=== PATIENT | male | born 1975 | race Caucasian/White ===

== ENCOUNTER 2021-04-07 04:25 | Inpatient (IN) | payer OTHER, SELFPAY ==
[2021-04-07] VITALS (10 sets, daily range): BP systolic 106–168; BP diastolic 65–94; PULSE 75–108; RESP 16–20; TEMP 36.6–38.8; O2SAT 94–100; BMI 51.7
--- NOTE | ~2021-04-07 | CT_ITS ---
EXAMINATION: CT abdomen pelvis w con DATE: 04/07/2021 06:20 INDICATION: Lower abdominal pain, fever, nausea TECHNIQUE: Computed tomography (CT) of the abdomen and pelvis was performed with 100 mL Omnipaque-350 intravenous contrast. Automated exposure control and iterative reconstruction technique were employe d. The dose-length product was 1618.35 mGy-cm. COMPARISON: None FINDINGS: There are peripheral wedge shaped regions with combination of groundglass opacity and more dense cons olidation at the posterior basilar aspect of both lower lobes. Appearance is suspicious for pulmonary infarcts at the phase of contrast is insufficient to diagnostically assess for pulmonary emboli. No pleural effusion. Heart size is normal. Atherosclerotic coronary artery calcific location. No pericar dial effusion. Diffuse hepatic steatosis with focal sparing at the gallbladder fossa. Gallbladder, sp galina, pancreas, bilateral adrenal glands and kidneys are normal. Very small gas containing duodenal d iverticulum arising from the second portion of the duodenum. Bowels are otherwise unremarkable with n o wall thickening or obstruction. Normal appendix. Diffuse smooth bladder wall thickening. No free in traperitoneal gas or fluid. No pathologically enlarged abdominal or pelvic lymphadenopathy. Small fat -containing umbilical hernia. There are bridging osteophytes at multiple levels in the lower thoracic spine, consistent with diffuse idiopathic skeletal hyperostosis (DISH). IMPRESSION: 1. Peripheral wedge-shaped opacities in the bilateral lower lobes with appearance suspicious for pulm onary infarcts. Contrast opacification of the pulmonary arteries insufficient to assess for pulmonary emboli. Differential would include pneumonia, aspiration or organizing pneumonia. 2. Diffuse hepatic steatosis. 3. Diffuse smooth bladder wall thickening which could be seen with chronic outlet obstruction, neurog enic bladder or cystitis either acute or chronic. Correlate with urinalysis. Reviewed, dictated and finalized at location A. IMPRESSION: 1. Peripheral wedge-shaped opacities in the bilateral lower lobes with appearan ce suspicious for pulmonary infarcts. Contrast opacification of the pulmonary a rteries insufficient to assess for pulmonary emboli. Differential would include pneumonia, aspiration or organizing pneumonia. 2. Diffuse hepatic steatosis. 3. Diffuse smooth bladder wall thickening which could be seen with chronic outl et obstruction, neurogenic bladder or cystitis either acute or chronic. Correla te with urinalysis.
--- NOTE | ~2021-04-07 | CT_ITS ---
EXAMINATION: CTA chest PE protocol EXAM DATE: 04/08/2021 09:31 INDICATION: Shortness of breath. Cough. Fever. Right lower quadrant pain. Abnormal CT scan abdomen wi th basilar airspace disease and peripheral wedge-shaped appearance. Allergy to iodine, needed for med ication. TECHNIQUE: Spiral CTA of the chest (pulmonary arteries) was performed with 100 cc Omnipaque 350 intr avenous contrast injection. Images were acquired during the pulmonary arterial phase. Coronal maxi mum intensity projection 3D-reconstructions were created by the technologist on dedicated workstation . Axial, coronal and sagittal reformatted images were reviewed. The dose-length product (DLP) for t his examination was 1001.84 mGy-cm. The exposure was tailored according to patient size (auto mA ex posure control), and iterative reconstruction (ASIR) was used as additional dose reduction technique. Correlation is made to CT abdomen pelvis same date. FINDINGS: Pulmonary arteries are well opacified and without intraluminal filling defects. No thora cic aortic dissection. Bilateral posterior sulcal airspace disease, appearance consistent with pneum onia. Pulmonary arteries extending to this enhance normally. There are no pleural or pericardial eff usions. Tracheobronchial tree is patent. There is no mediastinal, hilar or axillary lymphadenopat hy. There is no pneumothorax. Heart normal in size. No evidence of coronary arterial calcificat ion. Steatosis small to moderate-sized bridging right anterolateral thoracic endplate osteophytes. There are no osteoblastic or osteolytic lesions identified. IMPRESSION: 1. Bilateral lower lobe posterior segmental pneumonia. 2. No pulmonary emboli. Reviewed, dictated and finalized at location A.
--- NOTE | ~2021-04-07 | XR_ITS ---
EXAMINATION: XR chest 1V portable DATE: 04/07/2021 05:00 INDICATION: Cough, fever, dizziness and nausea TECHNIQUE: frontal view of the chest was obtained. COMPARISON: CT dated 04/07/2021 FINDINGS: Subtle opacities at the lung bases most prominent at the medial left lung base better appreciated on subsequent CT. No pulmonary edema, pleural effusion or pneumothorax. The cardiomediastinal silhouette is normal. IMPRESSION: 1. Subtle opacities at the bilateral lung bases with differential based on appearance on subsequent C T including pulmonary infarct, pneumonia, aspiration or chronic organizing pneumonia. Reviewed, dictated and finalized at location A. IMPRESSION: 1. Subtle opacities at the bilateral lung bases with differential based on appe arance on subsequent CT including pulmonary infarct, pneumonia, aspiration or c hronic organizing pneumonia.
--- NOTE | ~2021-04-07 | US_ITS ---
EXAMINATION: US venous doppler [facility] DATE: 04/07/2021 15:32 INDICATION: Shortness of breath TECHNIQUE: Lawrence scale images without and with compression and Doppler images of the bilateral lower e xtremity veins were obtained. COMPARISON: None FINDINGS: The right common femoral vein, profunda femoral vein, femoral vein, popliteal vein, peroneal trunk, p osterior tibial veins, and greater saphenous vein are patent. The left common femoral vein, profunda femoral vein, femoral vein, popliteal vein, peroneal trunk, po sterior tibial veins, and greater saphenous vein are patent. IMPRESSION: 1. Patent bilateral lower extremity veins. No evidence of deep venous thrombosis. Reviewed, dictated and finalized at location A. IMPRESSION: 1. Patent bilateral lower extremity veins. No evidence of deep venous thrombosi s.
--- NOTE | 2021-04-07 04:46 | ECG_ITS ---
Measurements Intervals [place] Rate: 102 P: 47 DE: 140 QRS: -15 QRSD: 106 T: 42 QT: 321 QTc: 420 Interpretive Statements SINUS TACHYCARDIA BASELINE WANDER- I, AVL, AVF BORDERLINE ECG Electronically Signed On 04-07-2021 6:41:49 CDT by Johnnie Gunter D.O.
--- NOTE | 2021-04-07 04:48 | ED.FEVER ---
HPI - Fever General Chief Complaint: Fever Stated Complaint: fever, dizzy, nausea Time Seen by Provider: 04/07/21 04:35 Source: patient Mode of arrival: ambulatory Limitations: no limitations History of Present Illness HPI Narrative: This is a 46 year old Caucausian male with history of DM who presents for evaluation of fever. Patient developed fever of 103 F yesterday. He also reports associated headache, nausea, cough and shortness of breath. HE denies chest pain, vomiting, runny nose, sore throat or diarrhea. He is unvaccinated for COVID and he denies any sick contacts. He last took tylenol over 10 hours ago Related Data Allergies Allergy/AdvReac Type Severity Reaction Status Date / Time SEAFOOD Allergy Mild Hives Uncoded 04/07/21 04:38 Review of Systems Review of Systems: All systems reviewed & are unremarkable except as noted in HPI and below Constitutional: Constitutional: Reports chills and Reports fever(s) ENT: Reports dizziness, Denies nasal congestion and Denies sore throat Cardiovascular: Cardiovascular: Denies chest pain Respiratory: Respiratory: Reports cough and Reports dyspnea Gastrointestinal: Gastrointestinal: Reports abdominal pain, Denies diarrhea, Reports nausea and Denies vomiting Neurologic: Reports headache(s) [facility] Past Medical History Medical History (Updated 04/07/21 @ 07:42 by Natalee Reese MD) Diabetes mellitus Surgical History Surgical History (Updated 04/07/21 @ 04:49 by Natalee Reese MD) No pertinent past surgical history Social History Social History (Updated 04/07/21 @ 04:49 by Natalee Reese MD) Smoking status: Never smoker Exam Const: General: no acute distress and alert Nutritional Appearance: obese Orientation/consciousness: patient oriented x3 HENMT: Head: normocephalic and atraumatic Ears: TM's normal bilaterally Face and sinus: normal facial exam, sinuses nontender and face symmetric Mouth: Yes Normal oral and palatal mucosa present, Yes lip normal, Yes oropharynx normal and Yes moist mucous membranes Throat: posterior oropharynx normal, tonsils normal and uvula midline Eyes: Pupils: Equal, round and reactive pupils present EOM: EOMs intact bilaterally Resp: Effort & Inspection: normal respiratory effort and no retractions Auscultation: clear to auscultation bilaterally Cardio: Rate: regular rate Rhythm: regular rhythm Heart sounds: no murmurs GI: Inspection: distended GI Palp: Yes Soft to palpation, Yes Tenderness to palpation present (GI) (Diffuse worse on LLQ), No Guarding due to palpation present (GI) and No Rigid due to palpation Auscultation: normal bowel sounds Skin: General skin exam: normal color Rashes: no rashes Neuro: General: patient oriented x3, moves all extremities and CN's II-XI intact bilaterally Psych: Mental Status: mental status grossly normal Affect: normal affect Course Reevaluation(s) Reevaluation #1: I Discussed with patient with UTI possible pneumonia vs pulmonary infarct. Date: 04/07/21 Time: 07:40 Consultations Consultation #1: I discussed with Dr. Bonilla about patient with sepsis UTI with possible pulmonary infarct vs pneumonia vs PE. He request d dimer . and they will reassess patient. He accepts patient to [facility]. Date: 04/07/21 Time: 07:38 Vital Signs Vital signs: Vital Signs Temperature 101.7 F H 04/07/21 04:25 Pulse Rate 108 H 04/07/21 04:25 Respiratory Rate 18 04/07/21 04:25 Blood Pressure 168/94 H 04/07/21 04:25 Pulse Oximetry 97 04/07/21 04:25 Temperature 101.7 F H 04/07/21 04:25 Pulse Rate 99 04/07/21 05:36 Respiratory Rate 18 04/07/21 05:36 Blood Pressure 106/65 04/07/21 05:36 Pulse Oximetry 95 04/07/21 05:36 MDM - Fever Lab Data Attestation: I reviewed the patient's lab results. Result diagrams: 04/07/21 05:05 04/07/21 05:05 Labs: Lab Results 04/07/21 04/07/21 04/07/21 Range/Units 05:05 05:05 05:05 WBC
[2021-04-07 05:14] LABS: Basophils Percent Auto 0.4 % (0.2-1.2); Eosinophils Percent Auto 0.4 % (0-4.4); Hematocrit 41.5 % (42.0-52.0); Hemoglobin 14.3 g/dL (14.0-18.0); Immature Granulocyte Absolute 0.03 K/mm3 (0.00-0.031); Immature Granulocyte Percent A 0.4 % (0-0.5); Lymphocytes Absolute Auto 1.12 K/mm3 (0.9-3.2); Lymphocytes Percent Auto 16.2 % (18.3-44.2); Mean Corpuscular HGB Conc 34.5 g/dl (32-36); Mean Corpuscular Hemoglobin 30.8 pg (26-34); Mean Corpuscular Volume 89.2 fl (80-100); Mean Platelet Volume 9.7 fl (7.4-10.4); Monocytes Absolute Auto 0.7 K/mm3 (0.1-0.6); Monocytes Percent Auto 9.7 % (2.6-8.5); Neutrophils Percent Auto 72.9 % (45.5-73.1); Platelet Count Result 194 k/mm3 (150-375); Red Blood Count 4.65 M/mm3 (4.6-6.20); Red Cell Distribution Width 12.7 % (11.5-14.5); White Blood Count 6.9 K/mm3 (4.5-10.0)
[2021-04-07 05:24] LABS: INR 1.1; Prothrombin Time 13.6 Seconds (11.1-14.7)
[2021-04-07 05:25] LABS: Partial Thromboplastin Time 39.5 SECONDS (22.3-36.8)
[2021-04-07 05:26] LABS: Lactic Acid Reflex 1.1 mmol/L (0.7-2.1)
[2021-04-07] MEDS: ONDANSETRON INJ 4 MG/2 ML VIAL IV PUSH ×2 (05:32→17:20)
[2021-04-07 05:37] LABS: Troponin I < 0.012 ng/mL (0.000-0.034)
[2021-04-07 05:39] LABS: Alanine Aminotransferase 30 U/L (4-50); Albumin Level 4.9 g/dL (3.5-5.1); Alkaline Phosphatase 54 U/L (38-126); Anion Gap 13 mmol/L (8-16); Aspartate Amino Transferase 40 U/L (17-59); Bilirubin,Total 0.9 mg/dL (0.2-1.3); Blood Urea Nitrogen 16 mg/dL (9-20); Calcium 8.8 mg/dL (8.4-10.2); Carbon Dioxide 19 mmol/L (22-30); Chloride 98 mmol/L (98-107); Estimated CRCL calculation 151 ml/min; Estimated Glomerular Filt Rate > 60; Glucose 193 mg/dL (65-110); Lipase 14 U/L (23-300); Potassium 4.6 mmol/L (3.4-5.0); Sodium 130 mmol/L (137-145)
[2021-04-07 05:41] LABS: CRP 18.3 mg/dL (<1.0)
[2021-04-07] MEDS: SODIUM CHLORIDE 0.9% IV 1,000 ML 999 ML IV CONT (06:34)
[2021-04-07 07:08] LABS: Add Urine Microscopic? YES; Appearance Urine Cloudy (Clear); Bilirubin Urine Negative (Negative); Blood Urine 1+ (Negative); Color Urine Yellow (Yellow); Glucose Urine UA Negative (Negative); Ketones Urine Negative (Negative); Leukocyte Esterase Ur 3+ LEU/UL (Negative); Mucus Urine Rare /lpf; Nitrate Urine Positive (Negative); Protein Urine 2+ mg/dL (Negative); RBC Urine 21-50 /hpf (0-2); Urobilinogen Urine Negative mg/dL (<2.0); WBC Urine >75 /hpf
[2021-04-07 07:13] LABS: Specific Grav Ur 1.043 (1.001-1.035)
[2021-04-07 08:04] LABS: D Dimer 3.35 ug/mL (<0.48)
[2021-04-07] MEDS: ENOXAPARIN 120 MG/0.8 ML SYRINGE 160 MG SUB-Q (08:24)
--- NOTE | 2021-04-07 09:35 | PC.NURSE ---
attempted to call floor nurse, floor stated she will call back
--- NOTE | 2021-04-07 10:44 | ADMGEN ---
This patient, Jonathan Case, was admitted to [facility] Surg Room 303-01. Patient/family oriented to hospital policies and general routines including ID bracelet, bed and alarms, visiting hours, pain management, procedures, bathroom and other care routines, personal items, smoking policy, room service/diet, and visiting hours. Information on how to activate the Rapid Response Team has been discussed. Patient/Family are encouraged to report perceived risks to care and to ask questions if they do not understand what they are told or what they should do.
[2021-04-07 12:08] LABS: Glucose Point of Care 119 mg/dl (65-105)
[2021-04-07] MEDS: SODIUM CHLORIDE 0.9% IV 1,000 ML 125 ML IV CONT (12:24)
--- NOTE | 2021-04-07 14:59 | PM.IMHP ---
H&P: HPI History of Present Illness Date/Time: 04/07/21 14:59 this is a 46-year-old male patient who is on vaccinated for COVID 19. The patient has a history diabetes and hypertension. The patient presented to the emergency room for evaluation of a fever. The patient had a T-max of 103? yesterday. He also had a headache, nausea cough and shortness of breath. He denied any chest pain no nausea vomiting or diarrhea. The patient denies any sick contacts. He did take Tylenol over 10 hours ago. Chest x-ray was read as subtle opacities at the bilateral lung bases with differential based on appearance on subsequent CT involving pulmonary infarct, pneumonia aspiration or chronic organizing pneumonia. The patient was swabbed for COVID-19 and is pending PCR. Patient was given IV Tylenol, Zofran, IV fluids, azithromycin and Rocephin. The patient was started on subcu Lovenox therapeutic doses. However was thought that the patient was unable to get a CTA due to his seafood allergy. However I did call CT and they stated there was no correlation between seafood allergy and CT contrast and therefore the patient should be able to get a CT scan. The patient's D-dimers 3.35. Sodium is 130. Urinalysis was positive for UTI as well. Patient's temperature 38.6. Glucose 193. CRP 18.3 the patient is being admitted to observation status on the date of service of 04/07/2020 Chief Complaint: Fever and chills Review of Systems Review of Systems: All systems reviewed & are unremarkable except as noted in HPI and below Constitutional: Constitutional: Reports as per HPI and Reports no additional constitutional complaints Eyes: Eyes: Reports as per HPI and Reports no additional eye complaints ENT: Reports system reviewed and no additional complaints, except as documented and Reports Normal hearing present Cardiovascular: Cardiovascular: Reports no additional cardiovascular complaints Respiratory: Respiratory: Reports no additional respiratory complaints and Reports no additional respiratory complaints Gastrointestinal: Gastrointestinal: Reports as per HPI and Reports no additional gastrointestinal complaints Musculoskeletal: Musculoskeletal: Reports no additional musculoskeletal complaints Integumentary/Breasts: Skin/Breast: Reports system reviewed and no additional complaints, except as docu and Reports as per HPI Neurologic: Reports system reviewed and no additional complaints, except as documented, Reports as per HPI and Reports Normal hearing present Psychiatric: Psychiatric: Reports no additional psychiatric complaints and Reports as per HPI Endocrine: Endocrine: Reports no additional endocrine complaints Hematologic/Lymphatic: Hematologic/Lymphatic: Reports no additional hematologic/lymphatic complaints Allergic/Immunologic: Allergic/Immunologic: Reports no additional allergic/immunologic complaints [facility] Past Medical History Medical History (Updated 04/07/21 @ 15:15 by Jordyn Dale NP) Community acquired pneumonia Diabetes mellitus DM2 (diabetes mellitus, type 2) Hyperlipidemia Hypertension NADEEN on CPAP Surgical History Surgical History (Updated 04/07/21 @ 15:15 by Jordyn Dale NP) History of elbow surgery History of inguinal hernia repair Family History Family History (Updated 04/07/21 @ 15:15 by Jordyn Dale NP) Father Obstructive sleep apnea Mother Obstructive sleep apnea Social History Social History (Updated 04/07/21 @ 15:16 by Jordyn Dale NP) Social History: The patient lives with his parents. The patient has 1 daughter. His mother is the durable power cementing machine operator for healthcare. The patient is a full code. The patient is a lifelong nonsmoker. Does not use any alcohol marijuana or illicit drugs. 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 Smoking status: Never smoker Alcohol intake: never Substance use: never Spiritual care concerns: No Meds Home Medications and A
[2021-04-07 17:07] LABS: Glucose Point of Care 138 mg/dl (65-105)
[2021-04-07] MEDS: KETOROLAC 15 MG/ML VIAL (*BKC) IV PUSH (17:19)
[2021-04-07] MEDS: predniSONE 40 MG, predniSONE 10 MG 50 MG PO (20:30)
[2021-04-07] MEDS: ENOXAPARIN 80 MG/0.8 ML SYRINGE 160 MG SUB-Q (20:30)
[2021-04-07 22:16] LABS: Glucose Point of Care 167 mg/dl (65-105)
[2021-04-08] VITALS (8 sets, daily range): BP systolic 121–133; BP diastolic 74–80; PULSE 56–100; RESP 16–18; TEMP 36.1–37.7; O2SAT 97–100; BMI 45.2
[2021-04-08] MEDS: predniSONE 40 MG, predniSONE 10 MG 50 MG PO ×2 (01:20→09:54)
[2021-04-08] MEDS: SODIUM CHLORIDE 0.9% IV 1,000 ML 125 ML IV CONT (01:20)
[2021-04-08 01:27] LABS: SARS-CoV-2 RNA PCR Negative
[2021-04-08 06:42] LABS: Basophils Percent Auto 0.2 % (0.2-1.2); Hematocrit 41.4 % (42.0-52.0); Hemoglobin 14.4 g/dL (14.0-18.0); Immature Granulocyte Absolute 0.02 K/mm3 (0.00-0.031); Immature Granulocyte Percent A 0.4 % (0-0.5); Lymphocytes Absolute Auto 0.83 K/mm3 (0.9-3.2); Lymphocytes Percent Auto 17.3 % (18.3-44.2); Mean Corpuscular HGB Conc 34.8 g/dl (32-36); Mean Corpuscular Hemoglobin 30.3 pg (26-34); Mean Corpuscular Volume 87.2 fl (80-100); Monocytes Absolute Auto 0.1 K/mm3 (0.1-0.6); Monocytes Percent Auto 2.9 % (2.6-8.5); Neutrophils Absolute Auto 3.8 K/mm3 (1.3-6.7); Neutrophils Percent Auto 79.2 % (45.5-73.1); Platelet Count Result 196 k/mm3 (150-375); Red Blood Count 4.75 M/mm3 (4.6-6.20); Red Cell Distribution Width 12.7 % (11.5-14.5); White Blood Count 4.8 K/mm3 (4.5-10.0)
[2021-04-08 06:58] LABS: Alanine Aminotransferase 31 U/L (4-50); Albumin Level 4.6 g/dL (3.5-5.1); Alkaline Phosphatase 55 U/L (38-126); Anion Gap 11 mmol/L (8-16); Aspartate Amino Transferase 40 U/L (17-59); Bilirubin,Total 0.5 mg/dL (0.2-1.3); Blood Urea Nitrogen 16 mg/dL (9-20); Calcium 9.1 mg/dL (8.4-10.2); Carbon Dioxide 23 mmol/L (22-30); Chloride 101 mmol/L (98-107); Estimated CRCL calculation 139 ml/min; Estimated Glomerular Filt Rate > 60; Glucose 225 mg/dL (65-110); Sodium 135 mmol/L (137-145)
[2021-04-08 07:15] LABS: Hemoglobin A1C 7.2 % (<5.7)
[2021-04-08] MEDS: diphenhydrAMINE HCl CAP 25 MG CAPSULE 50 MG PO (07:59)
[2021-04-08 08:10] LABS: Glucose Point of Care 171 mg/dl (65-105)
[2021-04-08 09:11] LABS: Lactate Dehydrogenase 666 U/L (313-618)
[2021-04-08 09:22] LABS: CRP 17.9 mg/dL (<1.0)
[2021-04-08] MEDS: ENOXAPARIN 80 MG/0.8 ML SYRINGE 160 MG SUB-Q ×2 (09:54→21:02)
[2021-04-08 11:54] LABS: Glucose Point of Care 247 mg/dl (65-105)
--- NOTE | 2021-04-08 14:22 | PM.IMPN ---
Progress Note: A&P Assessment and Plan (1) Community acquired pneumonia: Code(s): J18.9 - Pneumonia, unspecified organism Status: Chronic Assessment and Plan: The patient is a 46-year-old man with a history of diabetes, hyperlipidemia, hypertension, who presented to the emergency room with fevers, chills, weakness for 2 days. The patient states his urine has been dark in color and there has been a foul odor. He denies any dysuria which he has had in the past with his UTIs. He denies any cough, shortness of breath, chest pain. He came to the ER for further evaluation workup. Initial vitals showed he had elevated blood pressure 168/94, tachycardic heart rate 108, febrile to 101.7?, normal oxygenation and respiratory on room air. Labs showed normal CBC and differential, elevated D-dimer at 3.35, sodium was low at 130. Glucose was elevated. Normal LFTs. Elevated CRP, LDH, ferritin. Urinalysis was very abnormal suggesting UTI with cloudy urine, 2+ protein, Positive Nitrate, Leukocytosis Est 3+, WBC > 75. CT abdomen showed Diffuse smooth bladder wall thickening which could be seen with chronic outlet obstruction, neurogenic bladder or cystitis either acute or chronic. Peripheral wedge-shaped opacities in the bilateral lower lobes with appearance suspicious for pulmonary infarcts. Contrast opacification of the pulmonary arteries insufficient to assess for pulmonary emboli. Differential would include pneumonia, aspiration or organizing pneumonia. Further evaluation was completed with a CTA of his chest which ruled out acute pulmonary embolism and infarction, and is now suggesting bilateral lower lobe posterior segmental pneumonia. The patient was admitted to the hospital with sepsis due to community-acquired pneumonia and urinary tract infection, started on IV azithromycin and Rocephin. Patient denies much of a cough for chest congestion. Patient resting comfortably 100% on room air Blood cultures negative to date. Continue monitoring respiratory status. Continue IV antibiotics for pneumonia. (2) Sepsis: Code(s): A41.9 - Sepsis, unspecified organism Status: Acute Assessment and Plan: Met sepsis criteria with tachycardia, fever, in the setting of UTI and pneumonia Patient had a low-grade fever of 100 around 1:00 a.m. last night. Otherwise he has been feeling well today with antibiotics. Continue monitoring. (3) Acute UTI: Code(s): N39.0 - Urinary tract infection, site not specified Status: Acute Assessment and Plan: Urine cultures are pending. The patient is on Rocephin. (4) Suspected COVID-19 virus infection: Code(s): Z20.822 - Contact with and (suspected) exposure to COVID-19 Status: Acute Assessment and Plan: Patient's COVID test was negative. He was taken off isolation. (5) DM2 (diabetes mellitus, type 2): Code(s): E11.9 - Type 2 diabetes mellitus without complications Status: Chronic Assessment and Plan: Patient's hemoglobin A1c is 7.2%. Glucose is this morning were 247. Most likely elevated due to infection. Accu-Cheks AC and HS. Sliding scale insulin. Continue with glipizide. Hold metformin. Hypoglycemic protocol in place. (6) Hypertension: Code(s): I10 - Essential (primary) hypertension Status: Chronic Assessment and Plan: Continue with lisinopril (7) Elevated d-dimer: Code(s): R79.89 - Other specified abnormal findings of blood chemistry Status: Acute Assessment and Plan: CTA of chest shows no acute pulmonary embolism. Venous Dopplers of lower extremity showed no acute DVT.
[2021-04-08 17:24] LABS: Glucose Point of Care 219 mg/dl (65-105)
[2021-04-08] MEDS: SIMVASTATIN 20 MG TABLET PO (17:35)
[2021-04-08] MEDS: lisinopriL 20 MG TABLET PO (17:35)
[2021-04-08] MEDS: glipiZIDE 5 MG TABLET PO (17:35)
[2021-04-08] MEDS: INSULIN ASPART (*BKC) 100 UNITS/ML SUB-Q (17:36)
[2021-04-09] VITALS: PULSE 65
[2021-04-09 04:00] VITALS: PULSE 63
[2021-04-09 06:21] VITALS: BP 114/74; PULSE 69; RESP 18; TEMP 36.1; O2SAT 99
[2021-04-09 06:27] LABS: Basophils Percent Auto 0.3 % (0.2-1.2); Eosinophils Percent Auto 0.3 % (0-4.4); Hematocrit 41.6 % (42.0-52.0); Hemoglobin 14.1 g/dL (14.0-18.0); Immature Granulocyte Absolute 0.01 K/mm3 (0.00-0.031); Immature Granulocyte Percent A 0.2 % (0-0.5); Lymphocytes Absolute Auto 1.54 K/mm3 (0.9-3.2); Lymphocytes Percent Auto 25.3 % (18.3-44.2); Mean Corpuscular HGB Conc 33.9 g/dl (32-36); Mean Corpuscular Hemoglobin 30.1 pg (26-34); Mean Corpuscular Volume 88.7 fl (80-100); Mean Platelet Volume 9.6 fl (7.4-10.4); Monocytes Absolute Auto 0.8 K/mm3 (0.1-0.6); Monocytes Percent Auto 13.5 % (2.6-8.5); Neutrophils Absolute Auto 3.7 K/mm3 (1.3-6.7); Neutrophils Percent Auto 60.4 % (45.5-73.1); Platelet Count Result 236 k/mm3 (150-375); Red Blood Count 4.69 M/mm3 (4.6-6.20); Red Cell Distribution Width 12.9 % (11.5-14.5); White Blood Count 6.1 K/mm3 (4.5-10.0)
[2021-04-09 06:36] LABS: Anion Gap 10 mmol/L (8-16); Blood Urea Nitrogen 21 mg/dL (9-20); Calcium 9.2 mg/dL (8.4-10.2); Carbon Dioxide 26 mmol/L (22-30); Chloride 101 mmol/L (98-107); Estimated CRCL calculation 139 ml/min; Estimated Glomerular Filt Rate > 60; Glucose 187 mg/dL (65-110); Potassium 3.9 mmol/L (3.4-5.0); Sodium 137 mmol/L (137-145)
[2021-04-09 08:00] VITALS: PULSE 58
[2021-04-09 08:48] LABS: Glucose Point of Care 172 mg/dl (65-105)
[2021-04-09] MEDS: lisinopriL 20 MG TABLET PO (09:25)
[2021-04-09] MEDS: glipiZIDE 5 MG TABLET PO (09:25)
[2021-04-09] MEDS: ENOXAPARIN 80 MG/0.8 ML SYRINGE 160 MG SUB-Q ×2 (09:25→20:20)
[2021-04-09] MEDS: SIMVASTATIN 20 MG TABLET PO (09:25)
[2021-04-09 11:55] LABS: Glucose Point of Care 137 mg/dl (65-105)
--- NOTE | 2021-04-09 13:06 | PM.IMPN ---
Progress Note: A&P Assessment and Plan (1) Community acquired pneumonia: Code(s): J18.9 - Pneumonia, unspecified organism Status: Chronic Assessment and Plan: The patient is a 46-year-old man with a history of diabetes, hyperlipidemia, hypertension, who presented to the emergency room with fevers, chills, weakness for 2 days. The patient states his urine has been dark in color and there has been a foul odor. He denies any dysuria which he has had in the past with his UTIs. He denies any cough, shortness of breath, chest pain. He came to the ER for further evaluation workup. Initial vitals showed he had elevated blood pressure 168/94, tachycardic heart rate 108, febrile to 101.7?, normal oxygenation and respiratory on room air. Labs showed normal CBC and differential, elevated D-dimer at 3.35, sodium was low at 130. Glucose was elevated. Normal LFTs. Elevated CRP, LDH, ferritin. Urinalysis was very abnormal suggesting UTI with cloudy urine, 2+ protein, Positive Nitrate, Leukocytosis Est 3+, WBC > 75. CT abdomen showed Diffuse smooth bladder wall thickening which could be seen with chronic outlet obstruction, neurogenic bladder or cystitis either acute or chronic. Peripheral wedge-shaped opacities in the bilateral lower lobes with appearance suspicious for pulmonary infarcts. Contrast opacification of the pulmonary arteries insufficient to assess for pulmonary emboli. Differential would include pneumonia, aspiration or organizing pneumonia. Further evaluation was completed with a CTA of his chest which ruled out acute pulmonary embolism and infarction, and is now suggesting bilateral lower lobe posterior segmental pneumonia. The patient was admitted to the hospital with sepsis due to community-acquired pneumonia and urinary tract infection, started on IV azithromycin and Rocephin. Patient denies much of a cough for chest congestion. Patient resting comfortably 99% on room air Blood cultures negative to date. Continue monitoring respiratory status. Continue IV antibiotics for pneumonia. (2) Sepsis: Code(s): A41.9 - Sepsis, unspecified organism Status: Acute Assessment and Plan: Met sepsis criteria with tachycardia, fever, in the setting of UTI and pneumonia Been afebrile for over 24 hours now. Otherwise he has been feeling well today with antibiotics. Continue monitoring. (3) Acute UTI: Code(s): N39.0 - Urinary tract infection, site not specified Status: Acute Assessment and Plan: Urine cultures are pending. The patient is on Rocephin. (4) Suspected COVID-19 virus infection: Code(s): Z20.822 - Contact with and (suspected) exposure to COVID-19 Status: Acute Assessment and Plan: Patient's COVID test was negative. He was taken off isolation. (5) DM2 (diabetes mellitus, type 2): Code(s): E11.9 - Type 2 diabetes mellitus without complications Status: Chronic Assessment and Plan: Patient's hemoglobin A1c is 7.2%. Glucose is this morning were 187. Most likely elevated due to infection. Accu-Cheks AC and HS. Sliding scale insulin. Continue with glipizide. Hold metformin. Hypoglycemic protocol in place. (6) Hypertension: Code(s): I10 - Essential (primary) hypertension Status: Chronic Assessment and Plan: Continue with lisinopril (7) Elevated d-dimer: Code(s): R79.89 - Other specified abnormal findings of blood chemistry Status: Acute Assessment and Plan: CTA of chest shows no acute pulmonary embolism. Venous Dopplers of lower extremity showed no acute DVT. (8) Hyperlipidem
[2021-04-09 14:00] VITALS: BP 112/66; PULSE 70; RESP 20; TEMP 36.2; O2SAT 98
[2021-04-09 16:16] LABS: Glucose Point of Care 160 mg/dl (65-105)
[2021-04-09] MEDS: TAMSULOSIN HCL 0.4 MG CAPSULE PO (17:26)
[2021-04-09] MEDS: ACETAMINOPHEN 500 MG TABLET 1000 MG PO (21:45)
[2021-04-09 22:00] VITALS: BP 119/56; PULSE 78; RESP 20; TEMP 36.8; O2SAT 99
[2021-04-09 23:17] LABS: Glucose Point of Care 183 mg/dl (65-105)
[2021-04-10 06:00] VITALS: BP 111/66; PULSE 72; RESP 20; TEMP 36.8; O2SAT 99
[2021-04-10 08:13] LABS: Glucose Point of Care 150 mg/dl (65-105)
[2021-04-10] MEDS: SIMVASTATIN 20 MG TABLET PO (08:26)
[2021-04-10] MEDS: glipiZIDE 5 MG TABLET PO (08:26)
[2021-04-10] MEDS: lisinopriL 20 MG TABLET PO (08:26)
[2021-04-10] MEDS: ENOXAPARIN 80 MG/0.8 ML SYRINGE 160 MG SUB-Q (08:26)
[2021-04-10] MEDS: TAMSULOSIN HCL 0.4 MG CAPSULE PO (08:26)
--- NOTE | 2021-04-10 12:36 | PM.DS ---
DS: Admitting Diagnosis Discharge Date 04/10/21 Admitting Diagnosis Fevers DS: Discharge Diagnosis Discharge Diagnosis (1) Community acquired pneumonia: Code(s): J18.9 - Pneumonia, unspecified organism Status: Chronic Assessment and Plan: The patient is a 46-year-old man with a history of diabetes, hyperlipidemia, hypertension, who presented to the emergency room with fevers, chills, weakness for 2 days. The patient states his urine has been dark in color and there has been a foul odor. He denies any dysuria which he has had in the past with his UTIs. He denies any cough, shortness of breath, chest pain. He came to the ER for further evaluation workup. Initial vitals showed he had elevated blood pressure 168/94, tachycardic heart rate 108, febrile to 101.7?, normal oxygenation and respiratory on room air. Labs showed normal CBC and differential, elevated D-dimer at 3.35, sodium was low at 130. Glucose was elevated. Normal LFTs. Elevated CRP, LDH, ferritin. Urinalysis was very abnormal suggesting UTI with cloudy urine, 2+ protein, Positive Nitrate, Leukocytosis Est 3+, WBC > 75. CT abdomen showed Diffuse smooth bladder wall thickening which could be seen with chronic outlet obstruction, neurogenic bladder or cystitis either acute or chronic. Peripheral wedge-shaped opacities in the bilateral lower lobes with appearance suspicious for pulmonary infarcts. Contrast opacification of the pulmonary arteries insufficient to assess for pulmonary emboli. Differential would include pneumonia, aspiration or organizing pneumonia. Further evaluation was completed with a CTA of his chest which ruled out acute pulmonary embolism and infarction, and is now suggesting bilateral lower lobe posterior segmental pneumonia. The patient was admitted to the hospital with sepsis due to community-acquired pneumonia and urinary tract infection, started on IV azithromycin and Rocephin. Urine culture came back growing Morganella morganii with sensitivities to ceftriaxone. He was discharged on cefdinir antibiotics upon discharge for continued treatment for total of 10 days of therapy. Probiotic to prevent any diarrhea associated with antibiotic use. Discharged on azithromycin for 1 day for a total of 5 days of therapy for community-acquired pneumonia. Patient was started on tamsulosin for urinary retention. Bladder scan showed he was retaining 394 cc even while on tamsulosin. I called the urologist nurse practitioner, Karlee, who stated the patient was not having any symptoms of distended bladder then some patients are able to retain more. Continue tamsulosin. Have him follow-up in the office for further evaluation and monitoring in 1 week of discharge. I also told her that he was having some dysuria and she recommended [id number] Pyridium verses prescribed Uribel. I informed the patient of the planning gave him information for their urology office. The patient understands and agrees the plan all questions answered. (2) Sepsis: Code(s): A41.9 - Sepsis, unspecified organism Status: Acute Assessment and Plan: Met sepsis criteria with tachycardia, fever, in the setting of UTI and pneumonia Continues to be afebrile with stable vitals. (3) Acute UTI: Code(s): N39.0 - Urinary tract infection, site not specified Status: Acute Assessment and Plan: (4) Suspected COVID-19 virus infection: Code(s): Z20.822 - Contact with and (suspected) exposure to COVID-19 Status: Acute Assessment and Plan: Patient's COVID test was negative. He was taken off isolation. (5) DM2 (diabetes mellitus, type 2): Code(s): E11.9 - Type 2 diabetes mellitus without complications Status: Chronic Assessment and
[2021-04-10 12:50] LABS: Glucose Point of Care 89 mg/dl (65-105)
[2021-04-10 14:00] VITALS: BP 130/70; PULSE 74; RESP 20; TEMP 36.4; O2SAT 99
[2021-04-10 16:53] LABS: Glucose Point of Care 131 mg/dl (65-105)
== END 2021-04-10 18:40 | disposition home or self-care (01) | DRG 871 ==
LOC: ANHED 07:42 → ANH3MEDSUR 08:54
PROVIDERS: Nurse Practitioner; Physician Assistant; Admitting Provider Family Medicine; Emergency Provider General Practice; Visit Provider Internal Medicine
DX: A41.9 Sepsis, unspecified organism (principal); J18.9 Pneumonia, unspecified organism; N39.0 Urinary tract infection, site not specified; R33.9 Retention of urine, unspecified; Z20.822 Contact with and (suspected) exposure to COVID-19; E11.9 Type 2 diabetes mellitus without complications; G47.33 Obstructive sleep apnea (adult) (pediatric); E78.5 Hyperlipidemia, unspecified; R79.89 Other specified abnormal findings of blood chemistry; I10 Essential (primary) hypertension; Z79.84 Long term (current) use of oral hypoglycemic drugs; Z79.899 Other long term (current) drug therapy; Z99.89 Dependence on other enabling machines and devices
CPT/HCPCS: 36415; 71045; 71275; 74177; 80048; 80053; 81001; 82728; 82948; 83036; 83605; 83615; 83690; 84484; 85025; 85380; 85610; 85730; 86140; 87040; 87077; 87086; 87088; 87186; 87804; 93005; 93970; 96361; 96365; 96366; 96367; 96368; 96372; 96375; 96376; 99285; A9270; C9803; G0378; J0131; J0456; J0696; J1650; J1815; J1885; J2405; J7030; J7512; Q9967; U0003; U0005

== ENCOUNTER 2021-08-26 15:41 | Emergency (ER) | payer BC, SELFPAY ==
--- NOTE | ~2021-08-26 | NM_ITS ---
EXAMINATION: NM pulmonary perfusion DATE: 08/26/2021 18:34 INDICATION: Shortness of breath. Elevated d-dimer. TECHNIQUE: 3.3 mCi Tc-99m MAA by intravenous route. Scintigraphic images of the chest were obtained. COMPARISON: Chest radiograph dated 08/26/2021 FINDINGS: There is relatively homogeneous perfusion throughout the lungs. No discrete perfusion defects identi fied. IMPRESSION: 1. Low probability for pulmonary embolism. Reviewed, dictated and finalized at location A. [facility] [employer] MANAGER
--- NOTE | ~2021-08-26 | XR_ITS ---
XR chest 1V portable DATE: 08/26/2021 16:36 INDICATION: Shortness of breath, Covid symptoms TECHNIQUE: Portable upright AP chest on August 26, 2021 at 1630 hours COMPARISON: 04/08/2021 CT pulmonary scan 04/07/2021 portable AP chest FINDINGS: Heart size appears normal. No hilar or mediastinal enlargement. No pulmonary infiltrate or consolidation, pleural effusion or pulmonary vascular congestion or pneumothorax. Degenerative spurring of the thoracic spine. IMPRESSION: No active cardiopulmonary disease Reviewed, dictated and finalized at location B. [facility]NER
[2021-08-26 15:49] VITALS: BP 148/92; PULSE 109; RESP 16; TEMP 37.3; O2SAT 98
--- NOTE | 2021-08-26 16:22 | ECG_ITS ---
Measurements Intervals Davis Rate: 101 P: 30 MN: 116 QRS: -25 QRSD: 106 T: 42 QT: 325 QTc: 422 Interpretive Statements SINUS TACHYCARDIA WITH SHORT MN INTERVAL INCOMPLETE RIGHT BUNDLE BRANCH BLOCK DELAYED PRECORDIAL R/S TRANSITION BORDERLINE ECG Electronically Signed On 08-26-2021 18:18:42 VAMPER by Johnnie Gunter D.O.
--- NOTE | 2021-08-26 16:39 | ED.SOB ---
HPI - SOB/Dyspnea General Chief Complaint: Shortness of Breath/Dyspnea <Katie Florian PA-C - Last Filed: 08/26/21 18:55> Stated Complaint: covid sx <JASON Barraza Last Filed: 08/26/21 18:55> Time Seen by Provider: 08/26/21 16:22 <JASON Barraza Last Filed: 08/26/21 18:55> Source: patient <JASON Barraza Last Filed: 08/26/21 18:55> Mode of arrival: ambulatory <JASON Barraza Last Filed: 08/26/21 18:55> Limitations: no limitations <JASON Barraza Last Filed: 08/26/21 18:55> History of Present Illness HPI Narrative: This is a 46 year old male that presents to the ER for feeling unwell for 2 days. Reports headache, fatigue, myalgias, fever, cough, and shortness of breath. Reports chest pain, especially with coughing. He has not taken anything for his symptoms today. Denies lower extremity edema. <JASON Barraza Last Filed: 08/26/21 18:55> Related Data Home Medications: Home Medications Medication Instructions Recorded Confirmed OneTouch Verio test strips 04/07/21 04/07/21 blood-glucose meter [OneTouch 04/07/21 04/07/21 Verio Flex meter] glipizide 5 mg PO DAILY 04/07/21 04/07/21 lisinopril 20 mg PO DAILY 04/07/21 04/07/21 metformin 500 mg PO BID 04/07/21 04/07/21 simvastatin 20 mg PO DAILY 04/07/21 04/07/21 <JASON Barraza Last Filed: 08/26/21 18:55> Allergies/Adverse Reactions: Allergies Allergy/AdvReac Type Severity Reaction Status Date / Time Iodine and Iodide Containing Allergy Mild Hives Verified 08/26/21 19:12 Produc SEAFOOD Allergy Mild Hives Uncoded 04/07/21 04:38 <JASON Barraza Last Filed: 08/26/21 18:55> Review of Systems Review of Systems: CONSTITUTIONAL: Reports fever ENT: Reports rhinorrhea, congestion, sore throat CARDIOVASCULAR: Reports chest pain. Denies edema. RESPIRATORY: Reports cough and dyspnea. MUSCULOSKELETAL: Reports myalgia. <Katie Florian PA-C - Last Filed: 08/26/21 18:55> All systems reviewed & are unremarkable except as noted in HPI and below <Katie Florian PA-C - Last Filed: 08/26/21 18:55> PMFSH Past Medical History Medical History: Medical History (Updated 08/26/21 @ 18:53 by Katie Florian PA-C) Community acquired pneumonia Diabetes mellitus DM2 (diabetes mellitus, type 2) Hyperlipidemia Hypertension NADEEN on CPAP <Katie Florian PA-C - Last Filed: 08/26/21 18:55> Surgical History Surgical History: Surgical History (Updated 04/07/21 @ 15:15 by Jordyn Dale NP) History of elbow surgery History of inguinal hernia repair <Katie Florian PA-C - Last Filed: 08/26/21 18:55> Family History Family History: Family History (Updated 04/07/21 @ 15:15 by Jordyn Dale NP) Father Obstructive sleep apnea Mother Obstructive sleep apnea <Katie Florian PA-C - Last Filed: 08/26/21 18:55> Social History Social History: Social History (Updated 04/07/21 @ 15:16 by Jordyn Dale NP) Social History: The patient lives with his parents. The patient has 1 daughter. His mother is the durable power production control supervisor for healthcare. The patient is a full code. The patient is a lifelong nonsmoker. Does not use any alcohol marijuana or illicit drugs. 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 Smoking status: Never smoker Alcohol intake: never Substance use: never Spiritual care concerns: No <Katie Florian PA-C - Last Filed: 08/26/21 18:55> Exam Narrative: GENERAL: Well-appearing, well-nourished, and in no acute distress. HEAD: Normocephalic, atraumatic. EYES: EOMI. ENT: Nares clear, no rhinorrhea or epistaxis. Mucous membranes moist. Oropharynx with mild erythema, no tonsillar hypertrophy exudate or other lesions. NECK: Supple. No adenopathy or masses. CHEST: Clear to auscultation. No respiratory distress. No wheezes rales or rhonchi HEART: Regular rate and rhythm.
[2021-08-26 16:47] LABS: Basophils Percent Auto 0.4 % (0.2-1.2); Eosinophils Percent Auto 0.1 % (0-4.4); Hematocrit 43.5 % (42.0-52.0); Hemoglobin 15.1 g/dL (14.0-18.0); Immature Granulocyte Absolute 0.02 K/mm3 (0.00-0.031); Immature Granulocyte Percent A 0.3 % (0-0.5); Mean Corpuscular HGB Conc 34.7 g/dl (32-36); Mean Corpuscular Hemoglobin 30.6 pg (26-34); Mean Corpuscular Volume 88.2 fl (80-100); Mean Platelet Volume 9.3 fl (7.4-10.4); Monocytes Absolute Auto 0.8 K/mm3 (0.1-0.6); Monocytes Percent Auto 9.7 % (2.6-8.5); Neutrophils Absolute Auto 5.6 K/mm3 (1.3-6.7); Neutrophils Percent Auto 71.5 % (45.5-73.1); Platelet Count Result 152 k/mm3 (150-375); Red Blood Count 4.93 M/mm3 (4.6-6.20); Red Cell Distribution Width 12.8 % (11.5-14.5); White Blood Count 7.8 K/mm3 (4.5-10.0)
[2021-08-26 17:02] LABS: Alanine Aminotransferase 59 U/L (4-50); Albumin Level 4.7 g/dL (3.5-5.1); Alkaline Phosphatase 73 U/L (38-126); Anion Gap 9 mmol/L (8-16); Aspartate Amino Transferase 48 U/L (17-59); Blood Urea Nitrogen 13 mg/dL (9-20); Calcium 9.4 mg/dL (8.4-10.2); Carbon Dioxide 24 mmol/L (22-30); Chloride 99 mmol/L (98-107); Estimated CRCL calculation 136 ml/min; Estimated Glomerular Filt Rate > 60; Glucose 179 mg/dL (65-110); Lactate Dehydrogenase 588 U/L (313-618); Potassium 4.1 mmol/L (3.4-5.0); Sodium 132 mmol/L (137-145)
[2021-08-26 17:03] LABS: Lactic Acid Reflex 1.1 mmol/L (0.7-2.1)
[2021-08-26 17:08] LABS: INR 1.1; Prothrombin Time 13.4 Seconds (11.1-14.7)
[2021-08-26 17:09] LABS: Partial Thromboplastin Time 33.4 SECONDS (22.3-36.8)
[2021-08-26 17:11] LABS: D Dimer 3.15 ug/mL (<0.48)
[2021-08-26 17:14] LABS: Troponin I < 0.012 ng/mL (0.000-0.034)
[2021-08-26 17:18] LABS: CRP 17.6 mg/dL (<1.0)
[2021-08-26 17:31] VITALS: O2SAT 96
--- NOTE | 2021-08-26 18:17 | PC.NURSE ---
pt in Nuclear Medicine at this time.
[2021-08-26 18:53] VITALS: BP 158/95; PULSE 94; RESP 18; TEMP 37.6; O2SAT 97
[2021-08-26 19:05] VITALS: BP 124/80; PULSE 90; RESP 16; O2SAT 97
[2021-08-26 21:31] LABS: SARS-CoV-2 RNA PCR Positive
== END 2021-08-26 19:05 | disposition home or self-care (01) ==
PROVIDERS: Physician Assistant; Emergency Provider Emergency Medicine; PCP Nurse Practitioner
DX: U07.1 COVID-19 (principal); R00.0 Tachycardia, unspecified; E11.9 Type 2 diabetes mellitus without complications; Z79.84 Long term (current) use of oral hypoglycemic drugs; I10 Essential (primary) hypertension; E78.5 Hyperlipidemia, unspecified; G47.30 Sleep apnea, unspecified
CPT/HCPCS: 36415; 71045; 78580; 80053; 82728; 83605; 83615; 84484; 85025; 85380; 85610; 85730; 86140; 87804; 93005; 96365; 99284; A9540; C9803; J0131; U0003; U0005